=== PATIENT | male | born 1975 | race Caucasian/White ===

== ENCOUNTER → 2017-12-25 | Outpatient (CLI) | payer OTHER | END | disposition home or self-care (01) | LOC: CFH 09:23 | PROVIDERS: ATTEND Nurse Practitioner Primary Care | DX: S43.401A Unspecified sprain of right shoulder joint, initial encounter (principal); X58.XXXA Exposure to other specified factors, initial encounter; Y93.89 Activity, other specified; Y92.89 Other specified places as the place of occurrence of the external cause; Y99.8 Other external cause status ==

== ENCOUNTER 2019-02-12 14:20 | Emergency (ER) | payer OTHER ==
[~2019-02-12] VITALS: Ht 188 cm; Wt 95.0 kg
[2019-02-12 14:21] VITALS: BP 135/76
--- NOTE | 2019-02-12 14:32 | NUR ---
PT REPORTS HAVING SPOT ON HIS R EYE SINCE SEEING A SHOW SATURDAY NIGHT, REPORTS HAVING A TAVERA THE NEXT DAY. DENIES TAVERA NOW OR DIZZINESS. NO OTHER NEURO SYMPTOMS REPORTED.
[2019-02-12] MEDS ORDERED: FLUORESCEIN OPHTHALMIC 1 MG STRIP ONE (14:37)
[2019-02-12] MEDS ORDERED: PROPARACAINE OPHTH 0.5%, 15ML ONE (14:37)
== END 2019-02-12 15:30 | disposition home or self-care (01) ==
LOC: ED 15:24
DX: H53.131 Sudden visual loss, right eye (principal)
CPT/HCPCS: 99282